=== PATIENT | female | born 1945 | race Caucasian/White ===

== ENCOUNTER → 2024-01-29 15:23 | Outpatient (CLI) | payer OTHER, MEDICARE, SELFPAY ==
--- NOTE | 2024-01-29 15:31 | DI.RAD.S_ITS ---
PROCEDURE: XR HAND RT MIN 3V INDICATIONS: Right hand injury TECHNIQUE: 3 views of the hand(s) acquired. COMPARISON: None. FINDINGS: Bones: There is dislocation seen involving the proximal interphalangeal joint of the 2nd finger. No definite associated fracture is seen. Degenerative changes are seen throughout, which are most prominent involving the 1st carpometacarpal joint. Milder degenerative changes are seen elsewhere. Soft tissues: No suspicious soft tissue calcifications. IMPRESSION: Dislocation of the proximal interphalangeal joint of the 2nd finger. Dictated by: Stevan Santiago M.D. on 01/29/2024 at 14:58 Approved by: Stevan Santiago M.D. on 01/29/2024 at 14:58
== END ==
PROVIDERS: PCP Physician Assistant; Referring Provider Registered Nurse; Visit Provider Registered Nurse
DX: S63.280A Dislocation of proximal interphalangeal joint of right index finger, initial encounter (principal); X58.XXXA Exposure to other specified factors, initial encounter
CPT/HCPCS: 73130